=== PATIENT | female | born 1980 ===

== ENCOUNTER → 2019-12-11 | Outpatient (CLI) | payer OTHER | LOC: LAB SHORT 11:51 → LAB 11:51 | DX: L08.9 Local infection of the skin and subcutaneous tissue, unspecified (principal); D22.5 Melanocytic nevi of trunk; L81.4 Other melanin hyperpigmentation; L73.2 Hidradenitis suppurativa; D48.5 Neoplasm of uncertain behavior of skin | CPT/HCPCS: 87070; 87077; 87147; 87186; 87205 ==

== ENCOUNTER 2020-12-17 10:31 | Emergency (ER) | payer OTHER ==
[~2020-12-17] VITALS: Ht 160 cm; Wt 131.5 kg
[2020-12-17] MEDS ORDERED: SPIRONOLACTONE50 MG PO (10:55)
[2020-12-17] MEDS ORDERED: TRAM50 PO (11:23)
== END 2020-12-17 11:37 | disposition home or self-care (01) ==
LOC: ER 10:31
DX: S93.402A Sprain of unspecified ligament of left ankle, initial encounter (principal); S80.02XA Contusion of left knee, initial encounter; F17.210 Nicotine dependence, cigarettes, uncomplicated; Z79.899 Other long term (current) drug therapy; V47.9XXA Unspecified car occupant injured in collision with fixed or stationary object in traffic accident, initial encounter; Y92.410 Unspecified street and highway as the place of occurrence of the external cause
CPT/HCPCS: 73562-LT; 73610; 99283-25; A9270

== ENCOUNTER → 2025-02-22 | Outpatient (CLI) | payer OTHER ==
[~2025-02-22] MED LIST: SPIRONOLACTONE50 MG PO; TRAM50 PO
[2025-02-22 16:07] LABS: Stool Occult Bld Immuno 1 Negative (NEGATIVE)
== END | disposition home or self-care (01) ==
LOC: LAB 11:49 → LAB SHORT 11:49
PROVIDERS: Family Medicine
DX: D64.9 Anemia, unspecified (principal)
CPT/HCPCS: G0328